=== PATIENT | female | born 1995 | race Two or more races ===

== ENCOUNTER 2018-03-05 07:12 | Emergency (ER) | payer MEDICAID ==
[~2018-03-05] VITALS: Ht 162.6 cm; Wt 60.8 kg
[2018-03-05 07:20] VITALS: BP 114/55; Ht 162.6 cm; Wt 60.8 kg
== END 2018-03-05 08:03 | disposition home or self-care (01) ==
LOC: ED 07:12
DX: B30.9 Viral conjunctivitis, unspecified (principal); Z88.0 Allergy status to penicillin